=== PATIENT | male | born 1940 | race Caucasian/White ===

== ENCOUNTER 2016-06-18 15:39 | Emergency (ER) | payer MEDICARE ==
[~2016-06-18 15:39] MED LIST: ASPIR 8181 M1 PO; ASPIRIN325 M3 PO; ASPIRIN325 MG PO; CENTRUM SILVER1 TA PO; COZAAR25 M1 PO; DUONEB 2.5-0.5 M3 ML IH; KEFLEX500 M4 PO; LEVAQUIN750 M1 PO; LOPRESSOR50 MG PO; METOPROLOL TART50 M2 PO; NORCO 5/3251 TAB PO; SENNA S TABLET1 TAB PO; ZESTRIL2.5 MG PO; ZOCOR40 M1 PO; ZOCOR40 MG PO
[2016-06-18] MEDS ORDERED: CIPRO500 M2 PO (15:55)
[2016-06-18] MEDS ORDERED: TOPROL XL100 M1 PO (15:56)
[2016-06-18 16:08] LABS: BASO % 0.5 % (0-2); EOS % 0.5 % (0-7); HCT-HEMATOCRIT 28.1 % (36.0-53.5); HGB-HEMOGLOBIN 9.6 gm/dl (13.5-17.0); IMMATURE GRANULOCYTES ABSOLUTE 0.02 tho/cmm (0-0.03); LYMPH % 71.4 % (20-45); LYMPH ABSOLUTE COUNT 1.4 tho/cmm (0.8-4.5); MCH (MEAN CORPUSCULAR HGB) 28.9 pg (28.0-32.0); MCHC MEAN CORPUSCULAR HGB CONC 34.2 % (32.0-36.0); MCV (MEAN CELL VOLUME) 84.6 fl (82.0-96.0); MEAN PLATELET VOLUME 10.1 cmc (9.4-12.4); MONOCYTE ABSOLUTE COUNT 0.1 tho/cmm (0.0-1.2); NEUTROPHILS % 23.6 % (40-80); PLATELET COUNT 192 tho/cmm (150-450); RED BLOOD COUNT 3.32 mil/cmm (4.40-5.70); RED CELL DISTRIBUTION WIDTH 13.5 % (12.4-16.4)
[2016-06-18 16:21] LABS: ANION GAP 13 mmol/L (0-20); BLOOD UREA NITROGEN 27 mg/dl (6-24); CALCIUM 8.3 mg/dl (8.5-10.5); CARBON DIOXIDE-VENOUS 27 mmol/L (22-32); CHLORIDE 103 mmol/l (96-110); CREATININE 1.07 mg/dl (0.60-1.30); GLUCOSE 111 mg/dL (70-110); POTASSIUM 4.1 mmol/L (3.7-5.1); SODIUM 139 mmol/L (135-145); eGFR VALUE FOR BLACK 77 mL/Min
[2016-06-18 17:05] LABS: NEUTROPHIL ABSOLUTE COUNT 0.5 tho/cmm (1.6-8.0); NEUTROPHIL-AUTOMATED 0.5 tho/cmm (1.6-8.0)
== END 2016-06-18 20:17 ==
LOC: EDMED 15:39
PROVIDERS: Emergency Medicine
DX: C34.90 Malignant neoplasm of unspecified part of unspecified bronchus or lung (principal); D70.9 Neutropenia, unspecified; I25.10 Atherosclerotic heart disease of native coronary artery without angina pectoris; K21.9 Gastro-esophageal reflux disease without esophagitis; Z95.1 Presence of aortocoronary bypass graft; Z79.82 Long term (current) use of aspirin; Z79.899 Other long term (current) drug therapy
CPT/HCPCS: J7030